=== PATIENT | male | born 1950 | race Caucasian/White ===

== ENCOUNTER 2016-12-21 12:45 | Emergency (ER) | payer MEDICARE ==
[~2016-12-21] VITALS: Ht 175.3 cm; Wt 88.0 kg
[~2016-12-21 12:45] MED LIST: AMT25T PO; ASPI500T15 PO; ATOR20TA PO; BMT1T PO; CLON1PAT15 TD; CLPD75T PO; GLIP5POW MC; IBP200T PO; INSU100I30 SQ; LSNP10T PO; METF500T4 PO; METO-270 PO; METO-274 PO; PENI500T PO
--- OUTSIDE RECORDS SUMMARY | 2016-12-21 12:49 | XMS REPORT | Continuity of Care Document ---
Author Author [facility] Organization [facility] Address Unknown Phone Unavailable Care Team Providers Care Historian Research Assistant Name Role Phone Kevin Kareem PCP [phone] Source Comments Some departments are not documenting in the electronic medical record. If you do not see the information that you expected, contact Release of Information in the Health Information Management department at [phone] for further assistance in locating additional records.[facility] Active Allergies and Adverse Reactions No Known Allergies Current Medications Prescription Sig. Disp. Refills Start End Date Status Date metFORMIN (GLUCOPHAGE) Take 500 mg by mouth Active 500 mg tablet three times daily. Takes prior to meals. Ranges from 2-3 times daily. MULTIVITAMIN PO Take 1 Tab by mouth Active daily. fish oil /omega-3 fatty Take 1 Cap by mouth twice Active acids (SEA-OMEGA) daily with meals. 340/1000 mg capsule VITAMIN E (DL,TOCOPHERYL Take 1 Tab by mouth Active ACET) (VITAMIN E (DL, daily. ACETATE) PO) ASCORBATE CALCIUM Take 1 Tab by mouth Active (VITAMIN C PO) daily. metoprolol XL (TOPROL XL) Take 1 Tab by mouth 30 Tab 11 06/25/20 Active 50 mg tablet daily. 13 Active Problems Problem Noted Date HTN (hypertension) 06/25/2013 Type 2 diabetes mellitus (HCC) 06/25/2013 Preop cardiovascular exam 06/25/2013 Abnormal resting ECG findings 06/25/2013 Tobacco use disorder 06/25/2013 Overview: Quit December; 40 pkyr Hx Social History Tobacco Use Types Packs/Day Years Used Date Former Smoker 1 40 Quit: 12/28/2012 Smokeless Tobacco: Never Used Alcohol Use Drinks/Week oz/Week Comments Yes 3-4 Cans of 0.0 wine/beer/liquor beer Last Filed Vital Signs Vital Sign Reading Time Taken Blood Pressure 172/104 06/25/2013 11:02 AM CDT Pulse 110 06/25/2013 11:01 AM CDT Temperature 36.9 C (98.4 F) 06/24/2013 1:00 PM CDT Respiratory Rate - - Height 1.753 m (5' 9") 06/25/2013 11:01 AM CDT Weight 86.274 kg (190 lb 3.2 oz) 06/25/2013 11:01 AM CDT Body Mass Index 28.07 06/25/2013 11:01 AM CDT Oxygen Saturation 95% 06/24/2013 1:00 PM CDT Plan of Care Health Maintenance Due Date Last Done Comments Hepatitis C Screening 1949 Physical (Comprehensive) 1956 Exam Pertussis Vaccine 1960 Tetanus Vaccine 1966 Colorectal Cancer 1999 Screening Shingles Vaccine 2009 Abdominal Aortic Aneurysm 2014 Screening Prevnar/Pneumovax (#1) 2014 Influenza Vaccine 05/11/2017 Results from Last 3 Months Not on file
--- OUTSIDE RECORDS SUMMARY | 2016-12-21 12:53 | XMS REPORT | Continuity of Care Document ---
Author Author [facility] Organization [facility] Address Unknown Phone Unavailable Care Team Providers Care Building Tech Name Role Phone Kevin Kareem PCP [phone] Source Comments Some departments are not documenting in the electronic medical record. If you do not see the information that you expected, contact Release of Information in the Health Information Management department at [phone] for further assistance in locating additional records.[facility] Active Allergies and Adverse Reactions No Known [...]
--- NOTE | 2016-12-21 14:33 | NUR ---
PT IS NOW TELLING RADIOLOGY STAFF THAT HE NOW HAS NECK PAIN THAT HE DID NOT MENTION TO THIS RN OR THE ED MD & WANTS TO KNOW "IF ANYONE IS GOING TO ADDRESS MY NECK PAIN". DR REAVES NOTIFIED & FURTHER ORDERS NOTED. CL
[2016-12-21] MEDS ORDERED: HYDROmorphone 1 MG/ML (DILAUDID) SYRINGE IM ONE (14:50)
--- NOTE | 2016-12-21 15:40 | Diagnostic Imaging Report ---
INDICATION: Trauma, pain TECHNIQUE: 2 views of the left humerus. CORRELATION STUDY: None FINDINGS: The humerus has an unremarkable appearance. The visualized portions of the shoulder and elbow are unremarkable. Soft tissues are unremarkable. IMPRESSION: 1. Negative for acute bony abnormality of the left humerus. Dictated by: Dictated on workstation # [id number]
[2016-12-21 15:41] VITALS: BP 150/65
--- NOTE | 2016-12-21 15:54 | Diagnostic Imaging Report ---
INDICATION: Trauma. TECHNIQUE: Odontoid, AP, lateral and swimmer's views of the cervical spine, 3:11 p.m. CORRELATION STUDY: None. FINDINGS: There is limited visualization of C6, C7 and T1 level. There is straightening and reversal of the normal cervical lordosis. There is anterolisthesis of C4 on C5 of approximately 3 mm. The C6 vertebral body also appears to be somewhat small. There is essentially complete absence and nonvisualization of the C4-C5 disc space with the vertebral body segments largely blurred. There is what appears to be some loss of the overall inferior C4 vertebral body. Marked disc space narrowing at C5-C6 level with endplate osteophytes, both anteriorly and posteriorly. Findings are likely chronic. The odontoid is not well visualized due to significant motion artifact on the odontoid projection. Hypertrophic facet arthropathy appears slightly greater on the left compared to the right. Prevertebral soft tissues are unremarkable. 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 Overall features favor likely a more chronic process. Possibility of prior traumatic changes or infectious etiology could give this appearance. Depending upon clinical findings, if further imaging is desired, CT imaging would be recommended. Telephone call was made to the emergency department. Dictated by: Dictated on workstation # [id number]
== END 2016-12-21 15:40 | disposition home or self-care (01) ==
LOC: ED 12:48
DX: S40.011A Contusion of right shoulder, initial encounter (principal); S16.1XXA Strain of muscle, fascia and tendon at neck level, initial encounter; W22.01XA Walked into wall, initial encounter; Z79.01 Long term (current) use of anticoagulants
CPT/HCPCS: 72040; 73060; 96372; 99282; J1170